=== PATIENT | female | born 1960 | race Caucasian/White ===

== ENCOUNTER 2017-06-19 11:04 | Emergency (ER) | payer OTHER ==
[~2017-06-19] VITALS: Ht 167.6 cm; Wt 75.0 kg
[2017-06-19 11:05] VITALS: BP 167/88; PULSE 80; RESP 16; TEMP 98.3; O2SAT 98
[2017-06-19 11:49] LABS: BLOOD, URINE NEG (NEG); COMMENT (UR) CULT NOT INDICATED; CULTURE IF INDICATED CULT NOT INDICATED; GLUCOSE,URINE NEG (NEG); KETONE, URINE NEG (NEG); MUCUS URINE FEW /lpf (OCC); NITRITE,URINE NEG (NEG); SQUAMOUS EPITHELIAL CELL URINE <1 /hpf (0-5); URINE COLOR LIGHT-YELLOW (YELLW/STRAW)
[2017-06-19 11:51] LABS: AUTOMATED NEUTROPHIL # 5.6 TH/MM3 (1.8-7.7); BASOPHIL # 0.1 TH/MM3 (0-0.2); BASOPHIL % 0.7 % (0.0-2.0); HEMATOCRIT 40.1 % (35.0-46.0); HEMO FLAGS DIFF FINAL; LYMPH % 25.6 % (9.0-44.0); LYMPHOCYTE # 2.1 TH/MM3 (1.0-4.8); MEAN CELL VOLUME 86.4 FL (80.0-100.0); MEAN CORPUSCULAR HEMOGLOBIN 28.9 PG (27.0-34.0); MEAN CORPUSCULAR HGB CONC 33.4 % (32.0-36.0); MONO % 5.3 % (0.0-8.0); NEUT % 68.4 % (16.0-70.0); PLATELET COUNT 243 TH/MM3 (150-450); RED BLOOD COUNT 4.64 MIL/MM3 (4.00-5.30); WHITE BLOOD COUNT 8.2 TH/MM3 (4.0-11.0)
[2017-06-19 12:07] LABS: ANION GAP 9 MEQ/L (5-15); AST (GOT) 15 U/L (15-37); BICARBONATE 20.5 MEQ/L (21.0-32.0); BLOOD UREA NITROGEN 13 MG/DL (7-18); CHLORIDE 114 MEQ/L (98-107); GLOMERULAR FILTRATION RATE 79 ML/MIN (>89); POTASSIUM 3.8 MEQ/L (3.5-5.1); SODIUM (NA) 143 MEQ/L (136-145)
[2017-06-19 12:10] LABS: ALKALINE PHOSPHATASE 142 U/L (45-117); ALT (GPT) 23 U/L (10-53); TOTAL BILIRUBIN ADULT 0.3 MG/DL (0.2-1.0)
--- NOTE | 2017-06-19 13:31 | PD ---
HPI Chief Complaint: Abdominal Pain Time Seen by Provider: 13:30 Travel History International Travel<30 days: No Contact w/Intl Traveler<30days: No Traveled to known affect area: No History of Present Illness HPI 56-year-old female presents for evaluation of diarrhea, abdominal bloating, and dizziness intermittently occurring over the last month. Patient states that she thinks that she though she is . Denies any history of liver disease or ascites. Denies any significant abdominal pain, but describes more of a cramping prior to watery diarrhea. Denies hematochezia. Mild nausea without vomiting. Denies any vaginal discharge or bleeding. No chest tightness. No fevers or chills. No other symptoms to report. PFSH Past Medical History Cardiovascular Problems: Yes (HTN) Past Surgical History Hysterectomy: Yes Social History Alcohol Use: Yes Tobacco Use: Yes Allergies-Medications (Allergen,Severity, Reaction): Coded Allergies: Penicillins (Verified Allergy, Severe, Anaphylaxis, 06/19/17) chlorpromazine (Verified Allergy, Severe, Hives, 06/19/17) Reported Meds & Prescriptions Reported Meds & Active Scripts Active Reported Mirtazapine 30 Mg Tab 30 Mg PO HS Propranolol (Propranolol HCl) 10 Mg Tab 10 Mg PO Q8HR Hydroxyzine HCl 25 Mg Tab 25 Mg PO TID Paroxetine (Paroxetine HCl) 30 Mg Tab 30 Mg PO DAILY Review of Systems Except as stated in HPI: all other systems reviewed are Neg Physical Exam Narrative GENERAL: Well-nourished female patient, in no acute distress SKIN: Focused skin assessment warm/dry. HEAD: Atraumatic. Normocephalic. EYES: Pupils equal and round. No scleral icterus. No injection or drainage. ENT: No nasal bleeding or discharge. Mucous membranes pink and moist. NECK: Trachea midline. No JVD. CARDIOVASCULAR: Regular rate and rhythm. No murmur appreciated. RESPIRATORY: No accessory muscle use. Clear to auscultation. Breath sounds equal bilaterally. GASTROINTESTINAL: Abdomen and tonic, soft, non-tender. MUSCULOSKELETAL: No obvious deformities. No clubbing. No cyanosis. No edema. NEUROLOGICAL: Awake and alert. No obvious cranial nerve deficits. Motor grossly within normal limits. Normal speech. Data Data Last Documented VS Vital Signs Date Time Temp Pulse Resp B/P (MAP) Pulse Ox O2 Delivery O2 Flow Rate FiO2 06/19/17 16:30 97.8 76 16 130/77 (94) 99 06/19/17 11:05 Room Air Orders Orders Complete Blood Count With Diff (06/19/17 11:15) Comprehensive Metabolic Panel (06/19/17 11:15) Urinalysis - C+S If Indicated (06/19/17 11:15) Lipase (06/19/17 11:15) Orthostatic Vital Signs (06/19/17 13:31) Iv Access Insert/Monitor (06/19/17 13:34) Ct Abd/Pel W Iv Contrast(Rout) (06/19/17 ) Oral Contrast - Adult (06/19/17 13:39) Diatrizoate Liq (Md Colin Liq) (06/19/17 13:46) Sodium Chlorid 0.9% 500 Ml Inj (Ns 500 M (06/19/17 15:15) Iohexol 350 Inj (Omnipaque 350 Inj) (06/19/17 15:25) Metoclopramide Inj (Reglan Inj) (06/19/17 16:00) Diphenhydramine Inj (Benadryl Inj) (06/19/17 16:00) Ketorolac Inj (Toradol Inj) (06/19/17 16:00) Labs Laboratory Tests Test 06/19/17 11:29 06/19/17 11:35 White Blood Count 8.2 TH/MM3 Red Blood Count 4.64 MIL/MM3 Hemoglobin 13.4 GM/DL Hematocrit 40.1 % Mean Corpuscular Volume 86.4 FL Mean Corpuscular Hemoglobin 28.9 PG Mean Corpuscular Hemoglobin Concent 33.4 % Red Cell Distribution Width 15.0 % Platelet Count 243 TH/MM3 Mean Platelet Volume 8.3 FL Neutrophils (%) (Auto) 68.4 % Lymphocytes (%) (Auto) 25.6 % Monocytes (%) (Auto) 5.3 % Eosinophils (%) (Auto) 0.0 % Basophils (%) (Auto) 0.7 % Neutrophils # (Auto) 5.6 TH/MM3 Lymphocytes # (Auto) 2.1 TH/MM3 Monocytes # (Auto) 0.4 TH/MM3 Eosinophils # (Auto) 0.0 TH/MM3 Basophils # (Auto) 0.1 TH/MM3 CBC Comment DIFF FINAL Differential Comment Blood Urea Nitrogen 13 MG/DL Creatinine 0.76 MG/DL Random Glucose 100 MG/DL Total Protein 7.8 GM/DL Albumin 3.8 GM/DL Calcium Level 9.1 MG/DL Alkaline Phosphatase 142 U/L Aspartate Amino Transf (AST/SGOT) 15 U/L Alanine Aminotransferase (ALT/SGPT) 23 U/L Total Bilirubin 0.3 MG/DL Sodium Level 143 MEQ/L Potassium Level 3.8 MEQ/L Chloride Level 114 MEQ/L Carbon Dioxide Level 20.5 MEQ/L Anion Gap 9 MEQ/L Estimat Glomerular Filtration Rate 79 ML/MIN Lipase 215 U/L Urine Color LIGHT-YELLOW Urine Turbidity CLEAR Urine pH 5.0 Urine Specific [place] 1.004 Urine Protein NEG mg/dL Urine Glucose (UA) NEG mg/dL Urine Ketones NEG mg/dL Urine Occult Blood NEG Urine Nitrite NEG Urine Bilirubin NEG Urine Urobilinogen LESS THAN 2.0 MG/DL Urine Leukocyte Esterase NEG Urine RBC LESS THAN 1 /hpf Urine WBC LESS THAN 1 /hpf Urine Squamous Epithelial Cells <1 /hpf Urine Mucus FEW /lpf Microscopic Urinalysis Comment CULT NOT INDICATED MDM Medical Decision Making Medical Screen Exam Complete: Yes Emergency Medical Condition: Yes Medical Record Reviewed: Yes Differential Diagnosis Abdominal pain, NOS versus colitis versus diverticulitis versus neoplasm versus UTI Narrative Course 56-year-old female presents to the emergency department for evaluation. Patient appears without distress. Her vital signs are stable. Lab work was drawn while the patient was in triage. It is without acute concern. Laboratory Tests Test 06/19/17 11:29 06/19/17 11:35 White Blood Count 8.2 TH/MM3 Red Blood Count 4.64 MIL/MM3 Hemoglobin 13.4 GM/DL Hematocrit 40.1 % Mean Corpuscular Volume 86.4 FL Mean Corpuscular Hemoglobin 28.9 PG Mean Corpuscular Hemoglobin Concent 33.4 % Red Cell Distribution Width 15.0 % Platelet Count 243 TH/MM3 Mean Platelet Volume 8.3 FL Neutrophils (%) (Auto) 68.4 % Lymphocytes (%) (Auto) 25.6 % Monocytes (%) (Auto) 5.3 % Eosinophils (%) (Auto) 0.0 % Basophils (%) (Auto) 0.7 % Neutrophils # (Auto) 5.6 TH/MM3 Lymphocytes # (Auto) 2.1 TH/MM3 Monocytes # (Auto) 0.4 TH/MM3 Eosinophils # (Auto) 0.0 TH/MM3 Basophils # (Auto) 0.1 TH/MM3 CBC Comment DIFF FINAL Differential Comment Blood Urea Nitrogen 13 MG/DL Creatinine 0.76 MG/DL Random Glucose 100 MG/DL Total Protein 7.8 GM/DL Albumin 3.8 GM/DL Calcium Level 9.1 MG/DL Alkaline Phosphatase 142 U/L Aspartate Amino Transf (AST/SGOT) 15 U/L Alanine Aminotransferase (ALT/SGPT) 23 U/L Total Bilirubin 0.3 MG/DL Sodium Level 143 MEQ/L Potassium Level 3.8 MEQ/L Chloride Level 114 MEQ/L Carbon Dioxide Level 20.5 MEQ/L Anion Gap 9 MEQ/L Estimat Glomerular Filtration Rate 79 ML/MIN Lipase 215 U/L Urine Color LIGHT-YELLOW Urine Turbidity CLEAR Urine pH 5.0 Urine Specific [place] 1.004 Urine Protein NEG mg/dL Urine Glucose (UA) NEG mg/dL Urine Ketones NEG mg/dL Urine Occult Blood NEG Urine Nitrite NEG Urine Bilirubin NEG Urine Urobilinogen LESS THAN 2.0 MG/DL Urine Leukocyte Esterase NEG Urine RBC LESS THAN 1 /hpf Urine WBC LESS THAN 1 /hpf Urine Squamous Epithelial Cells <1 /hpf Urine Mucus FEW /lpf Microscopic Urinalysis Comment CULT NOT INDICATED Last Impressions Abdomen/Pelvis CT 06/19/17 0000 Signed Impressions: Service Date/Time: Monday, June 19, 2017 15:16 - CONCLUSION: 1. Atherosclerosis. 2. Degenerative changes of the spine. Prince Griggs MD CT imaging is also without acute concern. Findings have been discussed with the patient. I also discussed the patient with my attending physician. Patient will be discharged home at this time. Diagnosis Primary Impression: Abdominal bloating Additional Impressions: Diarrhea Qualified Codes: R19.7 - Diarrhea, unspecified Dizziness, nonspecific Referrals: Support Architect Primary Care Physician Patient Instructions: Gastroenteritis (ED), General Instructions, Lightheadedness (ED) Additional Instructions: Maintain adequate oral hydration Follow-up with gastroenterology Follow-up with her primary care provider Return immediately with any acute worsening of symptoms Med/Other Pt SpecificInfo: No Change to Meds Disposition: 01 DISCHARGE HOME Condition: Stable Kristine Arias ADAM Jun 19, 2017 13:31
[2017-06-19] MEDS ORDERED: DIATRIZOATE MEGLUM/DIATRIZOATE SOD 9 ML CUP ONE (13:46)
[2017-06-19 13:48] VITALS: BP_SYST 149; BP_SYST 152; BP_SYST 154; BP_DIAS 73; BP_DIAS 76; BP_DIAS 81; RESP 17; RESP 18
[2017-06-19] MEDS ORDERED: PARO30TA2 PO (14:05)
[2017-06-19] MEDS ORDERED: HYDR-3133 PO (14:05)
[2017-06-19] MEDS ORDERED: MIRT30TA PO (14:05)
[2017-06-19] MEDS ORDERED: PROP10TA6 PO (14:05)
[2017-06-19] MEDS ORDERED: SODIUM CHLORID 0.9% 500 ML INJ 500 ML IV ONE (15:15)
[2017-06-19] MEDS ORDERED: IOHEXOL 350 MG/ML 10 ML VIAL (for RAD DIAG) IVCONTRAST ONE (15:25)
--- NOTE | 2017-06-19 15:55 | RADRPT ---
EXAM DATE/TIME: 06/19/2017 15:16 [facility] COMPARISON: No previous studies available for comparison. INDICATIONS : Abdominal pain and swelling with diarrhea. IV CONTRAST: 90 cc Omnipaque 350 (iohexol) IV ORAL CONTRAST: No oral contrast ingested. RADIATION DOSE: 10.16 CTDIvol (mGy) MEDICAL HISTORY : Hypertension. SURGICAL HISTORY : Hysterectomy. ENCOUNTER: Initial ACUITY: 1 month PAIN SCALE: 3/10 LOCATION: Bilateral abdomen TECHNIQUE: Volumetric scanning of the abdomen and pelvis was performed. Using automated exposure control and ad justment of the mA and/or kV according to patient size, radiation dose was kept as low as reasonably achievable to obtain optimal diagnostic quality images. DICOM format image data is available electro nically for review and comparison. FINDINGS: Liver, kidneys, spleen, pancreas, adrenal glands, stomach, small and large bowel are normal. Urinary bladder unremarkable. The patient is status post hysterectomy. No evidence of bowel obstruction. No a denopathy or aneurysm. Atherosclerotic calcification of the aorta and iliac vessels are identified. N o free fluid or free air. Lung bases are clear. Degenerative changes of the spine. CONCLUSION: 1. Atherosclerosis. 2. Degenerative changes of the spine. Prince Griggs MD on June 19, 2017 at 15:51 Board Certified Radiologist. This report was verified electronically.
[2017-06-19] MEDS ORDERED: KETOROLAC TROMETHAMINE 30 MG/ML (IVP) VIAL IV PUSH ONE (16:00)
[2017-06-19] MEDS ORDERED: diphenhydrAMINE HCL 50 MG/ML VIAL IV PUSH ONE (16:00)
[2017-06-19] MEDS ORDERED: METOCLOPRAMIDE HCL 10 MG/2 ML VIAL IV PUSH ONE (16:00)
[2017-06-19 16:30] VITALS: BP 130/77; TEMP 97.8
== END 2017-06-19 16:34 | disposition home or self-care (01) ==
LOC: NEPE 11:04
DX: R14.0 Abdominal distension (gaseous) (principal); R19.7 Diarrhea, unspecified; R42 Dizziness and giddiness; I10 Essential (primary) hypertension; F10.10 Alcohol abuse, uncomplicated; F17.290 Nicotine dependence, other tobacco product, uncomplicated
CPT/HCPCS: 74177; 80053; 81001; 83690; 85025; 96361; 96374; 96375; 99285; J1200; J1885; J2765; J7040; Q9963; Q9967